=== PATIENT | female | born 1955 | race African-American/Black ===

== ENCOUNTER 2021-04-04 16:24 | Inpatient (IN) | payer MEDICAID ==
[~2021-04-04] VITALS: Ht 165.1 cm; Wt 72.7 kg
[2021-04-04] MEDS ORDERED: PIPERACILLIN/TAZ 3.375G PREMIX 50 ML IV ONE (18:00)
[2021-04-04] MEDS ORDERED: VANCOMYCIN 1 G PREMIX 200 ML IV ONE (18:00)
[2021-04-04 18:31] LABS: BASOPHILS % 0.4 % (0.0-2.0); EOSINOPHILS % 0.1 % (0.0-5.0); HEMATOCRIT. 39.8 % (36.0-48.0); HEMOGLOBIN. 12.7 g/dL (12.0-16.0); LYMPHOCYTES % 23.5 % (20.0-50.0); MEAN CORPUSCULAR HEMOGLOBIN 27.3 pg (28.0-32.0); MEAN CORPUSCULAR VOLUME 85.5 fL (81.0-99.0); MEAN PLATELET VOLUME 9.7 fl (7.4-10.4); MONOCYTES % 5.9 % (2.0-8.0); NEUTROPHILS % 70.1 % (40.0-76.0); PLATELET 199 x1000/uL (130-400); RED BLOOD CELL COUNT 4.65 mill/uL (4.2-5.4); RED CELL DISTRIBUTION WIDTH 14.1 % (11.6-14.6)
[2021-04-04 18:38] LABS: CHLORIDE 99 mEq/L (98-107)
[2021-04-04] MEDS ORDERED: SODIUM CHLORIDE 0.9% 1000ML BAG (SEPSIS BOLUS) IV NR (20:00)
[2021-04-04 22:45] VITALS: BP 128/73
[2021-04-05] VITALS: BP 128/73
[2021-04-05] MEDS ORDERED: HYDROCODONE/ACETAMINOPHEN 5/325MG TABLET PO PRN (01:00)
[2021-04-05] MEDS ORDERED: CLONIDINE 0.1MG TABLET PO PRN (01:00)
[2021-04-05 04:00] VITALS: BP 101/53
[2021-04-05] MEDS: PIPERACILLIN/TAZOBACTAM 3.375 G in DEXTROSE 5% WATER 50 ML IV SCH ×3 (05:05→22:52)
[2021-04-05 07:33] LABS: CHLORIDE 103 mEq/L (98-107)
[2021-04-05 07:46] LABS: BASOPHILS % 0.3 % (0.0-2.0); EOSINOPHILS % 0.1 % (0.0-5.0); HEMATOCRIT. 34.1 % (36.0-48.0); HEMOGLOBIN. 11.3 g/dL (12.0-16.0); LYMPHOCYTES % 27.7 % (20.0-50.0); MEAN CORPUSCULAR HEMOGLOBIN 28.3 pg (28.0-32.0); MEAN CORPUSCULAR VOLUME 85.3 fL (81.0-99.0); MEAN PLATELET VOLUME 9.5 fl (7.4-10.4); MONOCYTES % 6.8 % (2.0-8.0); NEUTROPHILS % 65.1 % (40.0-76.0); PLATELET 174 x1000/uL (130-400); RED BLOOD CELL COUNT 3.99 mill/uL (4.2-5.4)
[2021-04-05 08:00] VITALS: BP 88/41
[2021-04-05] MEDS: VANCOMYCIN 750 MG PREMIX 150 ML IV SCH ×2 (08:55→20:46)
[2021-04-05] MEDS: ASPIRIN 81MG TABLET PO SCH (08:56)
[2021-04-05] MEDS: LISINOPRIL 20MG TABLET PO SCH (09:00)
[2021-04-05] MEDS: HEPARIN 5000 UNITS/ML VIAL SUBCUT SCH ×2 (09:14→20:46)
[2021-04-05] MEDS ORDERED: SODIUM CHLORIDE 0.9% 500 ML IV NR (09:45)
[2021-04-05] MEDS ORDERED: POTASSIUM CHLORIDE 20MEQ TABLET SR PO NR (12:30)
[2021-04-05] MEDS: ATENOLOL 25MG TABLET PO SCH (15:00)
[2021-04-05] MEDS ORDERED: NALOXONE HCL 0.4MG/ML VIAL IV PRN (15:45)
[2021-04-05 16:00] VITALS: BP 107/52
[2021-04-05] MEDS: ACETAMINOPHEN 325MG TABLET PO PRN ×2 (16:23→22:52)
[2021-04-05 20:00] VITALS: BP 92/52
[2021-04-06 00:43] VITALS: BP 101/61
[2021-04-06 04:00] VITALS: BP 116/70
[2021-04-06] MEDS: ACETAMINOPHEN 325MG TABLET PO PRN ×2 (04:16→08:05)
[2021-04-06] MEDS: PIPERACILLIN/TAZOBACTAM 3.375 G in DEXTROSE 5% WATER 50 ML IV SCH ×3 (05:08→23:08)
[2021-04-06 07:57] LABS: CHLORIDE 106 mEq/L (98-107)
[2021-04-06 08:00] VITALS: BP 108/59
[2021-04-06] MEDS: ASPIRIN 81MG TABLET PO SCH (08:05)
[2021-04-06] MEDS: VANCOMYCIN 750 MG PREMIX 150 ML IV SCH ×2 (08:20→22:02)
[2021-04-06] MEDS: LISINOPRIL 20MG TABLET PO SCH (08:21)
[2021-04-06] MEDS: HEPARIN 5000 UNITS/ML VIAL SUBCUT SCH ×2 (09:00→22:06)
[2021-04-06 12:13] LABS: BASOPHILS % 0.4 % (0.0-2.0); EOSINOPHILS % 0.5 % (0.0-5.0); HEMATOCRIT. 33.4 % (36.0-48.0); HEMOGLOBIN. 10.8 g/dL (12.0-16.0); LYMPHOCYTES % 32.4 % (20.0-50.0); MEAN CORPUSCULAR HEMOGLOBIN 27.9 pg (28.0-32.0); MEAN CORPUSCULAR VOLUME 86.7 fL (81.0-99.0); MEAN PLATELET VOLUME 9.4 fl (7.4-10.4); MONOCYTES % 9.1 % (2.0-8.0); NEUTROPHILS % 57.6 % (40.0-76.0); PLATELET 178 x1000/uL (130-400); RED BLOOD CELL COUNT 3.85 mill/uL (4.2-5.4)
[2021-04-06 12:48] LABS: CHLORIDE 106 mEq/L (98-107)
[2021-04-06] MEDS: ATENOLOL 25MG TABLET PO SCH (15:00)
[2021-04-06] MEDS: IBUPROFEN 400MG TABLET PO PRN (18:13)
[2021-04-06 20:00] VITALS: BP 108/61
[2021-04-07] VITALS: BP 115/67
[2021-04-07] MEDS: IBUPROFEN 400MG TABLET PO PRN ×3 (00:07→19:09)
[2021-04-07 04:00] VITALS: BP 104/56
[2021-04-07] MEDS: PIPERACILLIN/TAZOBACTAM 3.375 G in DEXTROSE 5% WATER 50 ML IV SCH ×3 (05:57→21:59)
[2021-04-07 07:01] LABS: BASOPHILS % 0.5 % (0.0-2.0); EOSINOPHILS % 0.9 % (0.0-5.0); HEMATOCRIT. 33.8 % (36.0-48.0); HEMOGLOBIN. 11.1 g/dL (12.0-16.0); LYMPHOCYTES % 38.2 % (20.0-50.0); MEAN CORPUSCULAR HEMOGLOBIN 28.5 pg (28.0-32.0); MEAN CORPUSCULAR VOLUME 87.2 fL (81.0-99.0); MEAN PLATELET VOLUME 9.3 fl (7.4-10.4); MONOCYTES % 7.1 % (2.0-8.0); NEUTROPHILS % 53.3 % (40.0-76.0); PLATELET 180 x1000/uL (130-400); RED BLOOD CELL COUNT 3.88 mill/uL (4.2-5.4); RED CELL DISTRIBUTION WIDTH 13.7 % (11.6-14.6)
[2021-04-07 07:04] LABS: CHLORIDE 106 mEq/L (98-107)
[2021-04-07 08:00] VITALS: BP 105/54
[2021-04-07] MEDS: VANCOMYCIN 750 MG PREMIX 150 ML IV SCH ×2 (08:33→20:01)
[2021-04-07] MEDS: ASPIRIN 81MG TABLET PO SCH (08:33)
[2021-04-07] MEDS: LISINOPRIL 20MG TABLET PO SCH (08:34)
[2021-04-07] MEDS: HEPARIN 5000 UNITS/ML VIAL SUBCUT SCH ×2 (08:34→19:58)
[2021-04-07 12:00] VITALS: BP 105/61
[2021-04-07] MEDS: ATENOLOL 25MG TABLET PO SCH (14:41)
[2021-04-07 16:00] VITALS: BP 111/62
[2021-04-07 20:00] VITALS: BP 121/65
[2021-04-08] VITALS: BP 104/58
[2021-04-08] MEDS: IBUPROFEN 400MG TABLET PO PRN ×4 (01:45→21:16)
[2021-04-08 04:00] VITALS: BP 108/55
[2021-04-08] MEDS: PIPERACILLIN/TAZOBACTAM 3.375 G in DEXTROSE 5% WATER 50 ML IV SCH ×2 (05:11→15:23)
[2021-04-08 06:23] LABS: BASOPHILS % 0.4 % (0.0-2.0); EOSINOPHILS % 2.1 % (0.0-5.0); HEMATOCRIT. 31.6 % (36.0-48.0); HEMOGLOBIN. 10.6 g/dL (12.0-16.0); LYMPHOCYTES % 36.6 % (20.0-50.0); MEAN CORPUSCULAR HEMOGLOBIN 28.9 pg (28.0-32.0); MEAN CORPUSCULAR VOLUME 86.1 fL (81.0-99.0); MEAN PLATELET VOLUME 8.9 fl (7.4-10.4); MONOCYTES % 8.9 % (2.0-8.0); PLATELET 186 x1000/uL (130-400); RED BLOOD CELL COUNT 3.67 mill/uL (4.2-5.4); RED CELL DISTRIBUTION WIDTH 13.6 % (11.6-14.6)
[2021-04-08 06:37] LABS: CHLORIDE 107 mEq/L (98-107)
[2021-04-08 08:00] VITALS: BP 103/58
[2021-04-08] MEDS: LISINOPRIL 20MG TABLET PO SCH (09:00)
[2021-04-08] MEDS: ASPIRIN 81MG TABLET PO SCH (09:08)
[2021-04-08] MEDS: VANCOMYCIN 750 MG PREMIX 150 ML IV SCH (09:09)
[2021-04-08] MEDS: HEPARIN 5000 UNITS/ML VIAL SUBCUT SCH ×2 (10:57→21:17)
[2021-04-08 12:00] VITALS: BP 112/56
[2021-04-08] MEDS: ATENOLOL 25MG TABLET PO SCH (15:24)
[2021-04-08 16:00] VITALS: BP 115/75
[2021-04-08 20:00] VITALS: BP 109/69
[2021-04-08] MEDS: CELECOXIB 200MG CAPSULE PO SCH (23:32)
[2021-04-09] VITALS: BP 116/53
[2021-04-09 04:00] VITALS: BP 110/54
[2021-04-09 07:10] LABS: BASOPHILS % 0.4 % (0.0-2.0); HEMATOCRIT. 31.2 % (36.0-48.0); HEMOGLOBIN. 10.5 g/dL (12.0-16.0); LYMPHOCYTES % 30.5 % (20.0-50.0); MEAN CORPUSCULAR HEMOGLOBIN 28.8 pg (28.0-32.0); MEAN CORPUSCULAR VOLUME 85.8 fL (81.0-99.0); MEAN PLATELET VOLUME 8.9 fl (7.4-10.4); MONOCYTES % 9.2 % (2.0-8.0); NEUTROPHILS % 57.9 % (40.0-76.0); PLATELET 216 x1000/uL (130-400); RED BLOOD CELL COUNT 3.63 mill/uL (4.2-5.4); RED CELL DISTRIBUTION WIDTH 13.3 % (11.6-14.6)
[2021-04-09 07:22] LABS: CHLORIDE 108 mEq/L (98-107)
[2021-04-09 08:00] VITALS: BP 121/68
[2021-04-09] MEDS: CELECOXIB 200MG CAPSULE PO SCH (09:55)
[2021-04-09] MEDS: ASPIRIN 81MG TABLET PO SCH (09:55)
[2021-04-09] MEDS: LISINOPRIL 20MG TABLET PO SCH (09:56)
[2021-04-09] MEDS: HEPARIN 5000 UNITS/ML VIAL SUBCUT SCH (09:58)
[2021-04-09] MEDS ORDERED: CELE200C PO (11:28)
[2021-04-09] MEDS ORDERED: ATEN-42 PO (11:28)
[2021-04-09] MEDS ORDERED: ASPI-1497 MT (11:28)
[2021-04-09] MEDS ORDERED: AMLO5TAB88 MT (11:28)
[2021-04-09 12:00] VITALS: BP 95/64
[2021-04-09] MEDS: ATENOLOL 25MG TABLET PO SCH (15:00)
[2021-04-09 15:31] VITALS: BP 111/66
[2021-04-09 16:00] VITALS: BP 111/66
[2021-04-11 19:08] LABS: ANA IFA Negative (.)
== END 2021-04-09 16:40 | disposition home or self-care (01) | DRG 351 ==
LOC: ER 16:24 → 6EST 21:42 → ENRESERV 22:11
PROVIDERS: ADMIT Internal Medicine; ATTEND Internal Medicine
DX: M19.072 Primary osteoarthritis, left ankle and foot (principal); L03.116 Cellulitis of left lower limb; D64.9 Anemia, unspecified; E11.9 Type 2 diabetes mellitus without complications; E87.6 Hypokalemia; G89.29 Other chronic pain; I10 Essential (primary) hypertension; M10.9 Gout, unspecified; M19.071 Primary osteoarthritis, right ankle and foot; R26.89 Other abnormalities of gait and mobility
CPT/HCPCS: 36415; 71045; 73610; 73630; 73718; 76881; 80048; 80053; 80202; 83605; 84145; 84550; 85025; 85651; 86140; 86256; 86431; 97162; 99285; C1893; J1644; J2543; J3370; J7040; J7060

== ENCOUNTER 2022-06-03 13:14 | Emergency (ER) | payer MEDICAID, OTHER ==
[~2022-06-03] VITALS: Ht 167.6 cm; Wt 75.0 kg
[~2022-06-03 13:14] MED LIST: AMLO5TAB88 MT; ASPI-1497 MT; ATEN-42 PO; CELE200C PO
[2022-06-03] MEDS ORDERED: IBUPROFEN 600MG TABLET PO ONE (14:30)
[2022-06-03] MEDS ORDERED: MELO-105 MT (15:55)
[2022-06-03 16:10] VITALS: BP 126/86
== END 2022-06-03 16:12 | disposition home or self-care (01) ==
LOC: ER 13:14
DX: M19.041 Primary osteoarthritis, right hand (principal); E11.9 Type 2 diabetes mellitus without complications; I10 Essential (primary) hypertension; Z79.899 Other long term (current) drug therapy
CPT/HCPCS: 73110; 73130; 99284